=== PATIENT | male | born 1960 | race Caucasian/White ===

== ENCOUNTER 2018-01-07 10:12 | Emergency (ER) | payer OTHER ==
[~2018-01-07] VITALS: Ht 182.9 cm; Wt 106.6 kg
[~2018-01-07 10:12] MED LIST: IBUPROFEN 600600 M1 PO; NOHOMEMEDICATIONS; NORCO 5-325 TA1 EACH PO; ZPAK PO
[2018-01-07 10:47] LABS: ABSOLUTE NEUTROPHILS 7.9 thou/uL (1.4-8.2); BASOPHILS 0.7 % (0.0-2.0); EOSINOPHILS 1.7 % (0.0-3.0); HEMATOCRIT 47.5 % (42.0-52.0); HEMOGLOBIN 16.1 gm/dL (14.0-18.0); LYMPHOCYTES 22.4 % (24.0-44.0); MCH 29.3 pg (26.0-34.0); MCHC 33.8 g/dL (28.0-37.0); MCV 86.6 fL (80.0-100.0); MONOCYTES 7.2 % (1.0-8.0); PLATELET COUNT 320 thou/uL (150-400); RBC 5.48 mil/uL (4.50-6.00); WBC 11.5 thou/uL (4.0-11.0)
[2018-01-07 10:57] LABS: ANION GAP 8 mmol/L (7-16); BUN 16 mg/dL (7-18); CALCIUM 9.5 mg/dL (8.5-10.1); CHLORIDE 103 mmol/L (98-107); CO2 25 mmol/L (21-32); CREATININE 1.1 mg/dL (0.7-1.3); GLUCOSE 113 mg/dL (74-106); POTASSIUM 4.4 mmol/L (3.5-5.1); SODIUM 136 mmol/L (136-145)
[2018-01-07 11:06] LABS: TROPONIN-I < 0.04 ng/mL (<0.06)
[2018-01-07 11:30] VITALS: BP 148/64
[2018-01-07] MEDS ORDERED: DOXYCYCLINE 10100 MG PO (11:35)
[2018-01-07] MEDS ORDERED: PROVENTIL HFA6.7 G1 INH (11:35)
[2018-01-07] MEDS ORDERED: TESSALON PERLE100 MG PO (11:35)
[2018-01-07] MEDS ORDERED: PREDNISONE 20 M20 MG PO (11:35)
== END 2018-01-07 12:25 | disposition home or self-care (01) ==
LOC: ER 10:12
PROVIDERS: Physician Assistant
DX: J18.9 Pneumonia, unspecified organism (principal); F17.210 Nicotine dependence, cigarettes, uncomplicated

== ENCOUNTER 2018-12-28 16:08 | Emergency (ER) | payer OTHER ==
[~2018-12-28] VITALS: Ht 182.9 cm; Wt 117.9 kg
[~2018-12-28 16:08] MED LIST changes: +DOXYCYCLINE 10100 MG PO; +PREDNISONE 20 M20 MG PO; +PROVENTIL HFA6.7 G1 INH; +TESSALON PERLE100 MG PO
[2018-12-28 16:44] LABS: ABSOLUTE NEUTROPHILS 7.4 thou/uL (1.4-8.2); BASOPHILS 1.1 % (0.0-2.0); EOSINOPHILS 2.8 % (0.0-3.0); HEMATOCRIT 48.8 % (42.0-52.0); HEMOGLOBIN 16.5 gm/dL (14.0-18.0); MCH 29.6 pg (26.0-34.0); MCHC 33.9 g/dL (28.0-37.0); MCV 87.5 fL (80.0-100.0); MONOCYTES 6.9 % (1.0-8.0); PLATELET COUNT 284 thou/uL (150-400); POLYS 63.2 % (36.0-66.0); RBC 5.58 mil/uL (4.50-6.00); RDW 13.5 % (10.5-14.5); WBC 11.7 thou/uL (4.0-11.0)
[2018-12-28 17:23] LABS: ANION GAP 11 mmol/L (7-16); BUN 22 mg/dL (7-18); CALCIUM 9.4 mg/dL (8.5-10.1); CHLORIDE 101 mmol/L (98-107); CO2 26 mmol/L (21-32); GLUCOSE 95 mg/dL (74-106); POTASSIUM 4.6 mmol/L (3.5-5.1); SODIUM 138 mmol/L (136-145)
[2018-12-28 17:34] LABS: TROPONIN-I <0.06 ng/mL (<0.06)
[2018-12-28] MEDS ORDERED: AMLODIPINE BESY10 MG PO (18:02)
[2018-12-28] MEDS ORDERED: COZAAR 25 MG TA25 M1 PO (18:02)
[2018-12-28] MEDS ORDERED: LISINOPRIL10 MG PO (18:07)
[2018-12-28] MEDS ORDERED: XANAX 1 MG TABLE1 MG PO (18:07)
[2018-12-28 18:08] VITALS: BP 157/101
--- NOTE | 2018-12-29 01:26 | EKG ---
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1960 Requested By: Daniela Phoenix Order Number: [id number] MD: Erik Acosta Measurements Intervals [place] Rate: 107 P: 73 [place]: 159 QRS: 82 QRSD: 104 T: 60 QT: 359 QTc: 479 Interpretive Statements Sinus tachycardia Borderline left atrial enlargement Nonspecific ST-T wave changes Compared to ECG 07/22/2015 18:04:35 No significant changes Electronically Signed On 12-29-2018 1:26:01 CDT by Erik Acosta [email or web address] ��������������������������������������������� <ELECTRONICALLY SIGNED> ���������������������������������������� By: Erik Acosta MD ��������������������������������������������� 12/29/18 0126 D: [id number] 30 Erik Acosta MD /EPI
== END 2018-12-28 18:21 | disposition home or self-care (01) ==
LOC: ER 16:08
PROVIDERS: Student in an Organized Health Care Education/Training Program
DX: R06.02 Shortness of breath (principal); I10 Essential (primary) hypertension; F41.9 Anxiety disorder, unspecified; F17.210 Nicotine dependence, cigarettes, uncomplicated

== ENCOUNTER 2021-06-26 13:38 | Emergency (ER) | payer OTHER ==
[~2021-06-26] VITALS: Ht 180.3 cm; Wt 106.6 kg
[~2021-06-26 13:38] MED LIST changes: +AMLODIPINE BESY10 MG PO; +COZAAR 25 MG TA25 M1 PO; +LISINOPRIL10 MG PO; +XANAX 1 MG TABLE1 MG PO
[2021-06-26 14:22] LABS: ABSOLUTE NEUTROPHILS 9.3 thou/uL (1.4-8.2); BASOPHILS 0.9 % (0.0-2.0); EOSINOPHILS 1.6 % (0.0-3.0); HEMATOCRIT 49.4 % (42.0-52.0); HEMOGLOBIN 16.8 gm/dL (14.0-18.0); LYMPHOCYTES 23.2 % (24.0-44.0); MCH 29.5 pg (26.0-34.0); MCHC 34.1 g/dL (28.0-37.0); MCV 86.5 fL (80.0-100.0); MONOCYTES 6.2 % (1.0-8.0); PLATELET COUNT 353 thou/uL (150-400); POLYS 68.1 % (36.0-66.0); RBC 5.72 mil/uL (4.50-6.00); RDW 13.8 % (10.5-14.5); WBC 13.7 thou/uL (4.0-11.0)
[2021-06-26 14:23] LABS: CALCIUM 9.2 mg/dL (8.5-10.1)
[2021-06-26 14:27] LABS: POTASSIUM 4.9 mmol/L (3.5-5.1)
[2021-06-26 14:28] LABS: ALBUMIN 3.8 g/dL (3.4-5.0); TOTAL BILIRUBIN 0.5 mg/dL (0.2-1.0); TOTAL PROTEIN 8.2 g/dL (6.4-8.2)
[2021-06-26] MEDS ORDERED: DOXYCYCLINE 10100 MG PO (15:32)
[2021-06-26 15:42] VITALS: BP 140/77
--- NOTE | 2021-06-26 16:29 | EKG ---
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 <ELECTRONICALLY SIGNED> By: Benigno Velarde MD, FACC 06/26/21 1629 1350 1350 Benigno Velarde MD, FAC /EPI
== END 2021-06-26 15:42 | disposition home or self-care (01) ==
LOC: ER 13:38
PROVIDERS: Nurse Practitioner
DX: J44.1 Chronic obstructive pulmonary disease with (acute) exacerbation (principal); Z20.822 Contact with and (suspected) exposure to COVID-19; I10 Essential (primary) hypertension; F17.210 Nicotine dependence, cigarettes, uncomplicated; Z98.890 Other specified postprocedural states; Z79.891 Long term (current) use of opiate analgesic; Z79.82 Long term (current) use of aspirin; Z79.899 Other long term (current) drug therapy